=== PATIENT | male | born 1990 | race Caucasian/White ===

== ENCOUNTER 2016-11-20 12:40 | Emergency (ER) | payer OTHER ==
[~2016-11-20] VITALS: Ht 193 cm; Wt 90.7 kg
[2016-11-20] MEDS ORDERED: VITAMIN B-1100 M1 PO (12:53)
[2016-11-20] MEDS ORDERED: CHLORDIAZEPOXID25 MG PO (12:54)
== END 2016-11-20 14:21 | disposition home or self-care (01) ==
LOC: ED 12:40
DX: S80.212A Abrasion, left knee, initial encounter (principal); S90.512A Abrasion, left ankle, initial encounter; S99.921A Unspecified injury of right foot, initial encounter; I10 Essential (primary) hypertension; F17.200 Nicotine dependence, unspecified, uncomplicated; Z79.899 Other long term (current) drug therapy; W23.0XXA Caught, crushed, jammed, or pinched between moving objects, initial encounter
CPT/HCPCS: 73560; 73610; 73630; 96372; 99283; J1885